=== PATIENT | female | born 1990 | race African-American/Black ===

== ENCOUNTER 2021-11-29 02:52 | Emergency (ER) | payer OTHER, SELFPAY ==
--- NOTE | ~2021-11-29 | XR_ITS ---
EXAMINATION: XR chest 2V 11/29/2021 04:32 INDICATION: Shortness of breath. PROCEDURE: 2 view chest COMPARISON: 08/04/2010 FINDINGS: The lungs are clear. The cardiomediastinal silhouette is within normal limits. There are no pleural effusions. There is no pneumothorax suspected. IMPRESSION: 1: NO ACUTE CARDIOPULMONARY DISEASE. Reviewed, dictated and finalized at location A.
[2021-11-29 02:55] VITALS: BP 146/73; PULSE 92; RESP 20; TEMP 36.5; O2SAT 99
[2021-11-29] MEDS: IPRATROPIUM BR 0.02% INH SOLN 0.5 MG/2.5 ML VIAL 2 MG INHALATION (03:21)
[2021-11-29] MEDS: ALBUTEROL SULFATE NEB 2.5 MG/3 ML INH 10 MG INHALATION (03:21)
[2021-11-29 03:25] VITALS: PULSE 86; RESP 22
--- NOTE | 2021-11-29 03:37 | ED.ASTHMA ---
HPI - Asthma General Chief Complaint: Asthma Stated Complaint: cough, asthma Time Seen by Provider: 11/29/21 03:06 History of Present Illness HPI Narrative: 31-year-old female with history of asthma presenting the emergency department for evaluation of worsening shortness of breath that started on Friday. Patient states she did attempt to use her breathing treatments at home but they had no significant improvement. Patient reports she was a prior smoker but quit about a month ago. Patient reports she has had hospitalizations approximately 1 year ago related to her asthma. Patient denies ever needing to be intubated. Patient did have a negative COVID test on Friday. Related Data Allergies Allergy/AdvReac Type Severity Reaction Status Date / Time No Known Allergies Allergy Mild Unverified 08/24/12 19:25 Review of Systems Review of Systems: CONSTITUTIONAL: Denies fever, chills, or sweats. EYES: Denies visual changes, redness, or discharge. ENT: Denies rhinorrhea, congestion, sore throat, or otalgia. CARDIOVASCULAR: Denies chest pain, palpitations, or edema. RESPIRATORY: Worsening cough wheezing and shortness of breath GASTROINTESTINAL: Denies abdominal pain, nausea, vomiting, or diarrhea. GENITOURINARY: Denies dysuria or hematuria. SKIN: Denies rash or itching. MUSCULOSKELETAL: Denies back pain, joint pain, or myalgia. NEUROLOGIC: Denies headache, numbness, or weakness. Exam Narrative: APPEARANCE: Patient speaking in complete sentences. HEAD: normocephalic, atraumatic. EYES: PERRLA/EOMI, conjunctivae clear. NOSE: Normal no drainage EARS:TMS clear with good light reflex. THROAT: Pharynx clear, no exudate. NECK: Supple. No adenopathy, no masses. RESPIRATORY: Significant expiratory wheeze on exam.. CARDIOVASCULAR: Regular rate and rhythm without murmurs rubs or gallops. ABDOMINAL: Soft, nontender, nondistended, normal bowel sounds MUSCULOSKELETAL: Moves all extremities. Strength/ROM intact, No edema, No calf tenderness. NEURO: Alert. Cranial nerves II through XII intact. Grossly intact SKIN: Warm, dry. Normal Color PSYCHIATRIC: Normal affect/mood. Course Course Emergency Course: Patient was treated with IV Solu-Medrol, and a continuous neb of 10 of albuterol and 2 of ipratropium. After nebulized treatment patient has no wheezing. Patient does have some cough but she states she does feel improved. Patient's only complaint is that she feels tired. Patient will be started on prednisone for 5 days. Patient's albuterol nebulizer solution was refilled. Patient was encouraged to have close follow-up with her primary care physician. Vital Signs Vital signs: Vital Signs Temperature 97.7 F 11/29/21 02:55 Pulse Rate 92 11/29/21 02:55 Respiratory Rate 20 11/29/21 02:55 Blood Pressure 146/73 H 11/29/21 02:55 Pulse Oximetry 99 11/29/21 02:55 Oxygen Delivery Room Air 11/29/21 02:55 Temperature 97.7 F 11/29/21 02:55 Pulse Rate 115 H 11/29/21 04:10 Respiratory Rate 22 H 11/29/21 03:25 Blood Pressure 146/73 H 11/29/21 02:55 Pulse Oximetry 88 L 11/29/21 04:09 Oxygen Delivery Room Air 11/29/21 04:09 Discharge Plan Discharge Clinical Impression: Asthma with acute exacerbation Qualifiers: Asthma severity: unspecified severity Asthma persistence: unspecified Qualified Code(s): J45.901 - Unspecified asthma with (acute) exacerbation Patient Disposition: Home, Self-Care Condition: Improved Instructions: Antibiotic Form, Asthma (ED) Additional Instructions: Albuterol as directed. Prednisone as directed for 5 days. Have close follow-up with your primary care physician. If you have any worsening symptoms please call or return to the emergency department. Prescriptions: New albuterol sulfate 2.5 mg /3 mL (0.083 %) solution for nebulization 2.5 mg inhalation Q6H Qty: 75 0RF prednisone 50 mg tablet 50 mg PO DAILY 5 Days Qty: 5 0RF Follow-up/Referrals: PHYSICIAN NOT ON
[2021-11-29] MEDS: methylPREDNISolone SOD SUCC 125 MG VIAL IV PUSH (04:08)
[2021-11-29 04:09] VITALS: O2SAT 88
[2021-11-29 04:10] VITALS: PULSE 115
[2021-11-29 05:17] VITALS: BP 125/94; PULSE 80; RESP 20; O2SAT 97
--- NOTE | 2021-11-29 05:17 | PC.NURSE ---
Atrovent given in 1 hour long Neb by Resp.
== END 2021-11-29 05:19 | disposition home or self-care (01) ==
PROVIDERS: Emergency Provider Emergency Medicine
DX: J45.901 Unspecified asthma with (acute) exacerbation (principal); Z87.891 Personal history of nicotine dependence
CPT/HCPCS: 71046; 94640; 96374; 99284; J2930